=== PATIENT | male | born 1940 | race Caucasian/White ===

== ENCOUNTER 2020-11-21 10:47 | Outpatient (REF) | payer SELFPAY | END 2020-11-21 10:48 | disposition home or self-care (01) | LOC: HO.HAP 10:47 | PROVIDERS: Visit Provider Internal Medicine | DX: Z46.1 Encounter for fitting and adjustment of hearing aid (principal) | CPT/HCPCS: V5266 ==

== ENCOUNTER 2021-01-11 14:36 | Outpatient (REF) | payer SELFPAY ==
--- NOTE | 2021-01-11 14:52 | MHC.AU.FUL ---
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 While here, he reported that the hearing aid does not seem to be working, and was hoping a new battery would fix it. He tried a new battery, and it was still not working. Tubing and microphones appeared clogged. Replaced slim tube and dome. Vacuumed microphones and inside of battery compartment. Hearing aid was working well after maintenance. Hearing aid was returned to the patient. Recommendations: Hearing instrument follow-up or maintenance as needed. Please contact our clinic with any questions or concerns. Patient will call if problems persist. Diagnosis Code(s): Primary Diagnosis: H90.3 Bilateral Sensorineural Hearing Loss Signature: Provider: Adri Vaughn, CCC-A
== END 2021-01-11 14:37 | disposition home or self-care (01) ==
LOC: HO.HAP 14:36
PROVIDERS: Visit Provider Internal Medicine
DX: Z46.1 Encounter for fitting and adjustment of hearing aid (principal); H90.3 Sensorineural hearing loss, bilateral
CPT/HCPCS: 99499; V5266

== ENCOUNTER 2021-03-26 10:01 | Outpatient (REF) | payer SELFPAY | END 2021-03-26 10:02 | disposition home or self-care (01) | LOC: HO.HAP 10:01 | PROVIDERS: Visit Provider Internal Medicine | DX: Z46.1 Encounter for fitting and adjustment of hearing aid (principal); H90.3 Sensorineural hearing loss, bilateral | CPT/HCPCS: V5266 ==